=== PATIENT | male | born 1950 | race Caucasian/White ===

== ENCOUNTER 2018-10-08 19:40 | Emergency (ER) | payer MEDICARE ==
--- NOTE | 2018-10-08 19:51 | Emergency Department Record ---
History of Present Illness - General Chief Complaint: Shortness of breath Stated Complaint: CARLY Source: Patient, Old records reviewed Limitations: No limitations - History of Present Illness Initial Comments: 68 yo male presents with progressive dyspnea the last 3 days. He is short of breath with rest and worsened by activity. He has had a dry cough. No fevers. He reports a prior history CHF. He reports that due to financial reasons he stopped nearly all of his medications except his diabetes medication and neuropathy medicine several months ago (June). He last saw a porcelain enamel repairer about 7 years ago and does not follow with a current porcelain enamel repairer. He denies chest pain, vomiting or diarrhea. He has some conversational dyspnea with leg swelling. PCP is Dr Figueredo. No prior visits on the [facility] EMR. He was 86% on RA with conversation dyspnea with transferring from the chair to gurney. With rest he went up to low 90's. MD Complaint: Shortness of breath -: Days(s) Severity: Moderate Quality: Other Consistency: Constant Improves With: Rest Worsens With: Exertion Known History Of: Congestive heart failure Associated Symptoms: Cough, Edema Treatments Prior to Arrival: None - Related Data Home Medications Medication Instructions Recorded Confirmed Last Taken Dulaglutide [Trulicity] 0.75 mg SQ WEEKLY 10/08/18 10/08/18 Unknown Duloxetine HCl [Cymbalta] 30 mg PO DAILY 10/08/18 10/08/18 Unknown Insulin Glargine,Hum.rec.anlog 110 unit SQ QHS 10/08/18 10/08/18 Unknown [Lantus] Pregabalin [Lyrica] 200 mg PO BID 10/08/18 10/08/18 Unknown Allergies Allergy/AdvReac Type Severity Reaction Status Date / Time minocycline [From Minocin] Allergy HIVES Verified 10/08/18 19:46 Review of Systems Constitutional: Denies: Chills, Fever, Malaise, Night sweats, Weakness Eyes: Denies: Eye discharge, Eye pain, Photophobia, Vision change ENT: Reports: Congestion Respiratory: Reports: Cough, Dyspnea. Denies: Hemoptysis, Stridor, Wheezes Cardiovascular: Reports: Dyspnea on exertion, Edema. Denies: Chest pain, Palpitations, Syncope Endocrine: Reports: Fatigue Gastrointestinal: Denies: Abdominal pain, Diarrhea, Nausea, Vomiting Genitourinary: Denies: Dysuria, Frequency, Hematuria Musculoskeletal: Denies: Arthralgia, Back pain, Myalgia Skin: Denies: Bruising, Change in color, Rash Neurological: Denies: Headache Psychiatric: Denies: Anxiety Hematological/Lymphatic: Denies: Easy bleeding, Easy bruising Physical Exam - General General Appearance: Alert, Oriented x3, Cooperative, No acute distress, Other ( dyspnea with mild exertion) - Head Head exam: Atraumatic, Normocephalic, Normal inspection - Eye Eye exam: Normal appearance, PERRL. negative: Conjunctival injection, Scleral icterus - ENT ENT exam: Normal exam, Mucous membranes moist Ear exam: Normal external inspection Nasal Exam: Normal inspection Mouth exam: Normal external inspection - Neck Neck exam: Normal inspection - Respiratory Respiratory exam: Accessory muscle use, Decreased breath sounds, Rales. negative: Normal lung sounds bilaterally, Prolonged expiratory, Wheezes - Cardiovascular Cardiovascular Exam: Regular rate, Normal rhythm, Normal heart sounds Peripheral Pulses: 2+: Radial (R), Radial (L) - GI/Abdominal GI/Abdominal exam: Soft, Other (Morbidly obese) - Rectal Rectal exam: Deferred - exam: Deferred - Extremities Extremities exam: Pedal edema, Other (chronic stasis changes). negative: Normal inspection, Tenderness - Back Back exam: Denies: CVA tenderness (R), CVA tenderness (L) - Neurological Neurological exam: Alert, Oriented X3 - Psychiatric Psychiatric exam: Normal affect, Normal mood. negative: Agitated, Anxious - Skin Skin exam: Diaphoretic, Intact, Normal color, Warm Course - Reevaluation(s) Reevaluation #1: EKG #1: 19:47 Rate: 98 Rhythm: sinus Flowood: left Intervals: normal ST segments: no acute changes, non specific poor R wave progression Prior: no old ekg 10/08/18 19:54 10/08/18 20:34 The CBC was reviewed No acute changes The CMP was reviewed. Normal renal function The Troponin is 0.012 minimally indeterminate The pro-BNP is elevated at 1822 10/08/18 21:01 The CXR was read as bibasilar opacities that may be infiltrate vs pulmonary edema, enlarged heart size, effusions. His clinical syndrome seems to represent volume overload as opposed to acute infection (no fever, no sputum, no leukocytosis) 10/08/18 21:16 Dr Campbell accepts the patient at [facility] [place] further work up with cardiology consultation likely 10/08/18 21:53 The patient agrees with transfer to [facility] but at this time he is adamant that he will drive himself. I explain in clear detail that I can not recommend him to go by private car to [facility]. I explained that off oxygen his levels drop, he becomes short of breath and this could lead to serious clinical issues like heart attack, syncope, stroke, . He understands his risks but he is unwilling to go by ambulance. I explained that this is too high of a risk for me to recommend and he will need to sign out AMA. I explained the AMA process and that he acknowledges the risks and personal takes responsibility for the risks. He is not the actual team driver. I explained he will be required to sign the AMA form. 10/08/18 22:02 At this time he has reconsidered and will consent to EMS transfer. Medical Decision Making - Lab Data Result diagrams: 10/08/18 20:00 10/08/18 20:00 Disposition Disposition: Transfer Clinical Impression: Congestive heart failure Qualifiers: Heart failure type: unspecified Heart failure chronicity: unspecified Qualified Code(s): I50.9 - Heart failure, unspecified Disposition: Acute Care Hospital Transfer Transfer To: [facility] Reason For Transfer: Acute CHF Accepting Physician: Shannan Time Discussed w/Accepting Physician: 21:12 Condition: (2) Stable Forms: Patient Portal Access Time of Disposition: 21:12 Quality - Quality Measures Quality Measures: N/A - Blood Pressure Screening Does Patient Have Any of the Following: Active Dx of HTN Blood Pressure Classification: Hypertensive Reading Systolic Measurement: 159 Diastolic Measurement: 114 Screening for High Blood Pressure: Patient Exclusion, Hx of HTN [[id number]]
[2018-10-08 20:06] LABS: BASO % 0.6 % (0-6); EOS % 1.9 % (0-6); GRAN % 63.1 % (47-80); HEMOGLOBIN 16.8 gm/dl (14.0-18.0); MEAN CELL VOLUME 88.3 fl (81-97); MEAN CORPUSCULAR HEMOGLOBIN 30.3 pg (27-33); MEAN CORPUSCULAR HGB CONC 34.3 g/dl (32-36); MEAN PLATELET VOLUME 11.1 fl (7.4-10.4); MONO % 8.4 % (0-9); PLATELET COUNT 179 K/uL (130-400); RED BLOOD COUNT 5.55 M/uL (4.40-5.70); WHITE BLOOD COUNT W/O DIFF 7.2 K/uL (4.2-12.2)
[2018-10-08 20:19] LABS: BLOOD UREA NITROGEN 20 mg/dL (8-23); CREATININE 0.9 mg/dL (0.7-1.2); EST GLOMERULAR FILTRATION RATE > 60 mL/min; INR 1.1; PARTIAL THROMBOPLASTIN TIME 26.4 SECONDS (24.5-39.1); PROTHROMBIN TIME (PATIENT) 10.8 SECONDS (9.5-12.1)
[2018-10-08 20:20] LABS: TOTAL PROTEIN 6.5 g/dL (6.6-8.7)
[2018-10-08 20:22] LABS: GLUCOSE,RANDOM 182 mg/dL (74-109)
[2018-10-08 20:25] LABS: ALB/GLOB RATIO 1.4 (1.1-1.8); ALBUMIN 3.8 g/dL (4.0-5.0); ALKALINE PHOSPHATASE 76 U/L (40-129); ALT/SGPT 13 U/L (<41); AST/SGOT 15 U/L (10.0-50.0)
[2018-10-08] MEDS ORDERED: ASPIRIN 81 MG CHEWABLE TABLET PO ONE (20:34)
[2018-10-08] MEDS ORDERED: FUROSEMIDE IV 40MG/4ML VIAL IVP ONE (20:34)
[2018-10-08] MEDS ORDERED: PREGABALIN (LYRICA) 100MG CAPSULE PO STA (22:13)
--- NOTE | 2018-10-12 07:25 | RADIOLOGY REPORT ---
EXAM: CHEST, TWO VIEWS HISTORY: DIFFICULTY BREATHING. TECHNIQUE: Two views of the chest were obtained. Comparison: None. FINDINGS: The cardiac silhouette is mildly enlarged. Bibasilar pulmonary opacities. Suggestion of trace bilateral pleural effusions. No visible pneumothorax. IMPRESSION: 1. BIBASILAR PULMONARY OPACITIES, MAY REPRESENT ACUTE AIR SPACE PROCESS SUCH EDEMA OR PNEUMONIA. 2. SUGGESTION OF TRACE BILATERAL PLEURAL EFFUSIONS. JOB NUMBER: [id number] MTDD
== END 2018-10-08 22:45 | disposition short-term general hospital (02) ==
LOC: ER 19:40
DX: I50.9 Heart failure, unspecified (principal); R06.02 Shortness of breath; R05 Cough; I10 Essential (primary) hypertension; E11.9 Type 2 diabetes mellitus without complications; Z79.4 Long term (current) use of insulin
CPT/HCPCS: 71046; 80053; 83880; 84484; 85025; 85610; 85730; 93005; 93010; 96374; 99285; J1940